=== PATIENT | female | born 1985 | race African-American/Black ===

== ENCOUNTER 2016-05-24 22:19 | Emergency (ER) | payer OTHER ==
[~2016-05-24] VITALS: Ht 149.9 cm; Wt 50.7 kg
[~2016-05-24 22:19] MED LIST: BENADRYL25 MG PO; BENADRYL50 MG PO; NAPROSYN500 MG PO; ZYRTEC10 M2 PO
[2016-05-24 23:22] LABS: CHLORIDE 107 mEq/L (99-109); POTASSIUM 3.7 mEq/L (3.7-5.4); SODIUM 138 mEq/L (136-147)
[2016-05-24 23:23] LABS: ADD MIUA? YES; BILIRUBIN NEGATIVE; BLOOD NEGATIVE; COLOR YELLOW ((YELLOW)); GLUCOSE (STRIP) NEGATIVE; KETONES NEGATIVE; LEUKOCYTES TRACE; NITRITE NEGATIVE; PROTEIN (STRIP) NEGATIVE; SPECIFIC GRAVITY 1.019 (1.000-1.030); UROBILINOGEN 0.2 MG/DL (0.2-1.0)
[2016-05-24 23:24] LABS: GLUCOSE 88 mg/dL (70-99)
[2016-05-24 23:26] LABS: ANION GAP 10 MEQ/L (2-14); TOTAL BILIRUBIN 0.2 mg/dL (0.0-1.0)
[2016-05-24 23:27] LABS: EOSINOPHIL (%) 4.4 % (0-5); EOSINOPHIL COUNT 0.3 K/uL (0-0.3); HEMATOCRIT 35.8 % (36.0-46.0); IMMATURE GRANULOCYTE (%) 0.3 % (0.0-0.7); INSTRUMENT ABS NEUTROPHIL CT 2.9 K/uL; LYMPHOCYTE COUNT 2.9 K/uL (1.0-2.8); MCH 20.8 PG (29.0-34.0); MCHC 30.7 G/DL (30.0-36.0); MCV 67.5 FL (83-99); MEAN PLAT.VOLUME 10.7 uM^3 (9.5-12.4); MONOCYTE (%) 10.5 % (3-12); MONOCYTE COUNT 0.7 K/uL (0-0.8); NEUTROPHIL (%) 42.7 % (45-76); NEUTROPHIL COUNT 2.9 K/uL (1.8-6.4); PLATELET COUNT 220 K/uL (156-360); RBC DIS.WIDTH-CV 15.3 % (11.8-14.6); RBC DIS.WIDTH-SD 36.6 % (39-53); WHITE BLOOD COUNT 6.9 K/uL (4.1-10.2)
[2016-05-24 23:28] LABS: ALKALINE PHOSPHATASE 62 IU/L (3-129); GFR ESTIMATE (CALCULATED) > 59 mL/min/
[2016-05-24 23:29] LABS: UREA NITROGEN (BUN) 14 mg/dL (9-23)
[2016-05-24 23:30] LABS: QUANTITATIVE HCG < 4.0 MIU/ML
[2016-05-24 23:32] LABS: LIPASE 12 U/L (1.0-51.0)
[2016-05-24 23:36] LABS: BACTERIA RARE /HPF; EPITHELIAL CELLS 1+ /HPF; MUCUS TRACE /LPF; RED BLOOD CELLS 0-5 /HPF (0-5); UCUL ADDED? NO
[2016-05-25] MEDS ORDERED: ZOFRAN ODT4 MG PO (00:18)
[2016-05-25] MEDS ORDERED: BENTYL20 MG PO (00:18)
[2016-05-25] MEDS ORDERED: SEROQUEL12.5 MG PO (00:29)
[2016-05-25] MEDS ORDERED: LAMOTRIGINE25 MG PO (00:29)
[2016-05-25] MEDS ORDERED: SEROQUEL200 MG PO (00:29)
[2016-05-25 00:36] VITALS: BP 95/51
== END 2016-05-25 00:38 | disposition home or self-care (01) ==
LOC: EME 22:19
PROVIDERS: Physician Assistant
DX: R11.2 Nausea with vomiting, unspecified (principal); F17.200 Nicotine dependence, unspecified, uncomplicated
CPT/HCPCS: 80053; 81003; 83690; 84702; 85025; 85027; 99281; 99284

== ENCOUNTER 2016-10-28 21:44 | Emergency (ER) | payer OTHER ==
[~2016-10-28] VITALS: Ht 149.9 cm; Wt 47.7 kg
[~2016-10-28 21:44] MED LIST changes: +BENTYL20 MG PO; +LAMOTRIGINE25 MG PO; +SEROQUEL12.5 MG PO; +SEROQUEL200 MG PO; +ZOFRAN ODT4 MG PO
[2016-10-29] MEDS ORDERED: ULTRAM50 MG PO (00:10)
[2016-10-29 00:45] VITALS: BP 115/93
== END 2016-10-29 00:46 | disposition home or self-care (01) ==
LOC: RME 21:44 → EME 21:44 → RME 10-29 00:46
PROC: 2W3RX1Z Immobilization of Left Lower Leg using Splint (ICD-10-PCS; principal; 2016-10-28)
DX: S92.902A Unspecified fracture of left foot, initial encounter for closed fracture (principal); V49.9XXA Car occupant (driver) (passenger) injured in unspecified traffic accident, initial encounter
CPT/HCPCS: 73630; 99281; 99284

== ENCOUNTER 2017-06-09 16:35 | Emergency (ER) | payer OTHER ==
[~2017-06-09] VITALS: Ht 149.9 cm; Wt 52.8 kg
[~2017-06-09 16:35] MED LIST changes: +ULTRAM50 MG PO
[2017-06-09] MEDS ORDERED: ATARAX,VISTARIL25 MG PO (18:07)
[2017-06-09 18:36] VITALS: BP 111/63
== END 2017-06-09 18:44 | disposition home or self-care (01) ==
LOC: EME 16:35
DX: T78.40XA Allergy, unspecified, initial encounter (principal); R21 Rash and other nonspecific skin eruption; R11.0 Nausea; F17.200 Nicotine dependence, unspecified, uncomplicated
CPT/HCPCS: 99281; 99285; J1200; J2930; S0028

== ENCOUNTER 2017-07-11 14:53 | Emergency (ER) | payer OTHER ==
[~2017-07-11] VITALS: Ht 149.9 cm; Wt 53.9 kg
[~2017-07-11 14:53] MED LIST changes: +ATARAX,VISTARIL25 MG PO
[2017-07-11] MEDS ORDERED: PEPCID40 MG PO (16:36)
[2017-07-11] MEDS ORDERED: ATARAX,VISTARIL50 MG PO (16:36)
[2017-07-11] MEDS ORDERED: PREDNISONE10 M1 PO (16:36)
[2017-07-11 16:45] VITALS: BP 111/83
== END 2017-07-11 16:46 | disposition home or self-care (01) ==
LOC: EME 14:53
DX: L50.0 Allergic urticaria (principal); F17.200 Nicotine dependence, unspecified, uncomplicated
CPT/HCPCS: 99281; 99283; J1100; Q0177

== ENCOUNTER 2017-07-22 19:31 | Emergency (ER) | payer OTHER ==
[~2017-07-22] VITALS: Ht 149.9 cm; Wt 54.0 kg
[~2017-07-22 19:31] MED LIST changes: +ATARAX,VISTARIL50 MG PO; +PEPCID40 MG PO; +PREDNISONE10 M1 PO
[2017-07-22 19:45] VITALS: BP 134/88
[2017-07-22 22:19] LABS: ALBUMIN 4.2 g/dL (3.2-4.8); CHLORIDE 101 mEq/L (99-109); POTASSIUM 3.8 mEq/L (3.7-5.4); SODIUM 138 mEq/L (136-147)
[2017-07-22 22:21] LABS: GLUCOSE 106 mg/dL (70-99); TOTAL PROTEIN 7.3 g/dL (6.4-8.3)
[2017-07-22 22:23] LABS: TOTAL BILIRUBIN 0.4 mg/dL (0.0-1.0)
[2017-07-22 22:25] LABS: ALKALINE PHOSPHATASE 62 IU/L (3-129); CREATININE 0.9 mg/dL (0.6-1.3); GFR ESTIMATE (CALCULATED) > 59 mL/min/
[2017-07-22 22:26] LABS: UREA NITROGEN (BUN) 9 mg/dL (9-23)
[2017-07-22 22:27] LABS: AST (GOT) 14 IU/L (2-34)
[2017-07-22 22:28] LABS: ALT (GPT) 11 IU/L (3-49)
[2017-07-22 22:33] LABS: QUANTITATIVE HCG < 4.0 MIU/ML
[2017-07-22] MEDS ORDERED: TRAMADOL HCL50 MG PO (22:38)
[2017-07-22] MEDS ORDERED: PREDNISONE10 MG PO (22:40)
== END 2017-07-22 23:15 | disposition home or self-care (01) ==
LOC: EME 19:31
PROVIDERS: Physician Assistant
DX: L50.9 Urticaria, unspecified (principal); K08.89 Other specified disorders of teeth and supporting structures
CPT/HCPCS: 80053; 84702; 85027; 99281; 99284; J7512

== ENCOUNTER 2017-08-11 04:20 | Emergency (ER) | payer OTHER ==
[~2017-08-11] VITALS: Ht 149.9 cm; Wt 55.1 kg
[~2017-08-11 04:20] MED LIST changes: +PREDNISONE10 MG PO; +TRAMADOL HCL50 MG PO
[2017-08-11] MEDS ORDERED: BENADRYL50 MG PO (04:55)
[2017-08-11] MEDS ORDERED: PREDNISONE20 MG PO (04:55)
[2017-08-11] MEDS ORDERED: ZANTAC150 MG PO (04:55)
[2017-08-11 05:24] VITALS: BP 134/84
== END 2017-08-11 05:25 | disposition home or self-care (01) ==
LOC: EME 04:20
DX: L50.9 Urticaria, unspecified (principal); F17.200 Nicotine dependence, unspecified, uncomplicated
CPT/HCPCS: 99281; 99284; J7512

== ENCOUNTER 2017-09-25 18:02 | Emergency (ER) | payer OTHER ==
[~2017-09-25] VITALS: Ht 149.9 cm; Wt 62.7 kg
[~2017-09-25 18:02] MED LIST changes: +PREDNISONE20 MG PO; +ZANTAC150 MG PO
[2017-09-25] MEDS ORDERED: BENADRYL50 MG PO (18:58)
[2017-09-25] MEDS ORDERED: PREDNISONE10 M1 PO (18:58)
[2017-09-25 19:09] VITALS: BP 110/81
== END 2017-09-25 19:10 | disposition home or self-care (01) ==
LOC: EME 18:02
DX: L50.9 Urticaria, unspecified (principal); F16.10 Hallucinogen abuse, uncomplicated
CPT/HCPCS: 99281; 99283; J1200; J2930; S0028